=== PATIENT | female | born 1950 | race Hispanic/Latino ===

== ENCOUNTER 2018-05-14 18:10 | Emergency (ER) | payer MEDICARE ==
[2018-05-14 18:41] LABS: #Eosinphils 0.2 thou/uL (0.0-0.7); #Monocytes 0.2 thou/uL (0.11-0.59); #Neutrophils 6.5 thou/uL (1.40-6.50); %Basophils 0.4 % (0.0-1.0); %Eosinophils 1.6 % (0.0-10.0); %Lymphocytes 36.8 % (21.0-51.0); %Neutrophils 59.1 % (42.0-75.0); Hemoglobin 14.9 g/dL (12.0-16.0); Mean Corpuscular Hemoglobin 28.3 pg (27.0-31.0); Mean Corpuscular Volume 80.8 fL (78.0-98.0); Mean Platelet Volume 8.4 fL (7.4-10.4); Platelet Count 317 thou/uL (130-400); RBC Distribution Width 12.2 % (11.5-14.5); Red Blood Cell (RBC) Count 5.26 mill/uL (4.20-5.40)
[2018-05-14] MEDS ORDERED: Nitroglycerin 0.4 MG TAB (25 Tab Bottle) ONE (18:53)
[2018-05-14 18:55] LABS: ALT (SGPT) 17 U/L (8-55); AST (SGOT) 13 U/L (5-34); Albumin 4.3 g/dL (3.4-4.8); Alkaline Phosphatase 90 U/L (40-150); Anion Gap 16 mmol/L (10-20); BUN (Urea Nitrogen) 14 mg/dL (9.8-20.1); Bilirubin, Total 0.4 mg/dL (0.2-1.2); CK (CPK) 62 U/L (29-168); Calc. Creatinine Clearance 0 mL/min (70-130); Calcium 9.9 mg/dL (7.8-10.44); Carbon Dioxide 29 mmol/L (23-31); Chloride 99 mmol/L (98-107); Estimated GFR-MDRD 74; Glucose 146 mg/dL (80-115); Protein, Total 7.3 g/dL (6.0-8.3); Sodium 141 mmol/L (136-145)
[2018-05-14 18:57] LABS: CKMB 1.7 ng/mL (0-6.6); Troponin I 0.011 ng/mL (< 0.028)
--- NOTE | 2018-05-14 20:35 | RAD ---
PORTABLE CHEST: Date: 05-14-18 Comparison: None. FINDINGS: This portable study at 1814 shows a normal sized heart and clear lungs. No lobar consolidation or eff usions were seen. The basilar markings are a little more prominent than the upper lobe markings which is probably a chronic change. No effusions are seen. Some density in the right cardiophrenic angle i s most likely a fat pad. There is no clear congestion of the upper lobe vessels. IMPRESSION: No definite acute findings. Minor prominence of basilar markings. POS: HOME
== END 2018-05-14 21:45 | disposition short-term general hospital (02) ==
LOC: BURERS 18:10
DX: I20.9 Angina pectoris, unspecified (principal); E11.9 Type 2 diabetes mellitus without complications; F17.210 Nicotine dependence, cigarettes, uncomplicated; I10 Essential (primary) hypertension; F32.9 Major depressive disorder, single episode, unspecified; Z79.899 Other long term (current) drug therapy; Z79.84 Long term (current) use of oral hypoglycemic drugs; Z79.82 Long term (current) use of aspirin
CPT/HCPCS: 71045; 80053; 82553; 83690; 84484; 85025; 93005; 94760; 96360

== ENCOUNTER 2020-07-14 16:23 | Outpatient (CLI) | payer MEDICARE ==
--- NOTE | 2020-07-14 17:25 | RAD ---
LUMBAR SPINE THREE VIEWS: 07/14/20 The bones are osteopenic, so subtle fractures might be missed. Comparison is made with the 04/28/19 udy done at [facility]. No acute fracture was appreciated. 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 Some scall oping of the superior end plate of L2 is also the same as before. There has been a prior posterior fu maximiliano of L4 and L5 with pedicle screws and an intervening disc spacer. There has been no adverse dye e in the appearance of this operative site. The SI joints symmetrical. IMPRESSION: Old changes but no acute finding. POS: HOME
== END 2020-07-14 16:24 | disposition home or self-care (01) ==
LOC: BURRAD 16:23
PROVIDERS: ATTEND Physician Assistant
DX: M54.5 Low back pain (principal); M85.88 Other specified disorders of bone density and structure, other site; W19.XXXA Unspecified fall, initial encounter
CPT/HCPCS: 72100

== ENCOUNTER 2021-05-30 09:27 | Emergency (ER) | payer MEDICARE | END 2021-05-30 11:20 | disposition home or self-care (01) | LOC: BURERS 09:27 | DX: S32.591A Other specified fracture of right pubis, initial encounter for closed fracture (principal); S50.01XA Contusion of right elbow, initial encounter; E11.9 Type 2 diabetes mellitus without complications; I10 Essential (primary) hypertension; F17.210 Nicotine dependence, cigarettes, uncomplicated; Z79.82 Long term (current) use of aspirin; Z79.4 Long term (current) use of insulin; Z79.899 Other long term (current) drug therapy; W18.30XA Fall on same level, unspecified, initial encounter | CPT/HCPCS: 72170 ==